=== PATIENT | female | born 1995 | race Caucasian/White ===

== ENCOUNTER 2017-04-21 00:11 | Emergency (ER) | payer OTHER ==
[~2017-04-21] VITALS: Ht 160 cm; Wt 65.8 kg
[~2017-04-21 00:11] MED LIST: MOTRIN
[2017-04-21 00:20] VITALS: BP_SYST 121
--- NOTE | 2017-04-21 00:20 | NUR ---
Patient AAOx3, ambulatory. Patient states having generalized body aches with a non-productive cough for approximately 3 days prior to ER visit. Patient +nausea, +vomiting at this time; patient states last episode of vomiting occurred approximately 2 hours prior to ER visit. Patient states body aches have a pain scale 8/10. Patient denies any other complaints.
--- NOTE | 2017-04-21 00:20 | NUR ---
Patient triaged and placed in waiting room. VSS and patient appears in no acute distress at this time. Accompanied by family, awaiting available bed, and MD notified of need for MSE.
--- NOTE | 2017-04-21 00:30 | NUR ---
ER Dr. Rivera at bedside examining patient.
--- NOTE | 2017-04-21 00:37 | NUR ---
Patient given written and verbal discharge instructions and verbalizes understanding. ER MD NGUYEN discussed with patient the results and treatment provided. Patient in stable condition. ID arm band removed. Rx of PROMETHAZINE W/ CODEINE given. Patient educated on pain management and to follow up with PMD. Pain Scale 0/10. Opportunity for questions provided and answered.
[2017-04-21 00:38] VITALS: BP_SYST 119
== END 2017-04-21 00:37 | disposition home or self-care (01) ==
LOC: SED 00:11
DX: B34.9 Viral infection, unspecified (principal)
CPT/HCPCS: 99283